=== PATIENT | female | born 1925 | race Caucasian/White ===

== ENCOUNTER 2016-08-15 13:48 | Emergency (ER) | payer MEDICARE ==
[~2016-08-15] VITALS: Ht 154.9 cm; Wt 70.0 kg
[~2016-08-15 13:48] MED LIST: ASPI-973 PO; ATEN25TA PO; CALC600T12 PO; CHOL200047 PO; CLOP75TA28 PO; ESTR42.52 VAGINAL; MULT-1018 PO; OMEG-38 PO; ROSU5TAB PO; VIT1TABL83 PO
[2016-08-15 14:02] VITALS: BP 147/83; PULSE 65; RESP 12; O2SAT 99
[2016-08-15] MEDS ORDERED: 0.9% Sodium Chloride 1,000 ML IV ONE (14:40)
--- NOTE | 2016-08-15 14:49 | ED.REPORT ---
HPI-Extremity Problem Lower Date of Service Aug 15, 2016 ED Provider: Yanely Campos MD Neelam is an 89-year-old female brought in by EMS with chief complaint of right leg pain. She states the pain started suddenly at approximately 10 AM this morning as she sat down on her bed. The plan centralized around her knee but she states it radiates to her hip and her foot. She describes an ache and rates it 10 out of 10. She attempting treatment with one Tylenol 3 followed by a second when shortly afterwards. The patient associates this pain with taking Plavix as she had a similar episode when she first started taking Plavix after a TIA. She DC'd Plavix pain subsided at that time after about [address] Jones convinced her to restart Plavix and she has been on it for 4-6 weeks at this point. She says the pain is the same. She denies back pain. Denies fever , DM, HIV, organ transplant, immunosuppression, recent surgery, recent infection , history of back surgery, surgical implants and IV drug use. Denies bowel/ bladder dysfunction and saddle anesthesia. Nursing Notes Stated Complaint: RIGHT LEG PAIN Chief Complaint: Extremity Trauma Nursing Notes Reviewed: Yes Allergies: Coded Allergies: amoxicillin trihydrate (Verified Adverse Reaction, Severe, N&V, 04/21/16) potassium clavulanate (Verified Adverse Reaction, Severe, N&V, 04/21/16) ciprofloxacin (Verified Adverse Reaction, Mild, N&V, 04/21/16) Per conversation with Dr. Phillips pt "feels unwell" when she takes Cipro. sulfamethoxazole (Verified Adverse Reaction, Mild, N&V, 04/21/16) trimethoprim (Verified Adverse Reaction, Mild, N&V, 04/21/16) Scheduled Aspirin (Aspirin) 81 Mg Tablet 81 MG PO DAILY Atenolol (Atenolol) 25 Mg Tablet 25 MG PO DAILY Calcium Carbonate (Calcium) 600 Mg Tablet 1,200 MG PO BID Cholecalciferol (Vitamin D3) (Vitamin D3) 2,000 Unit Capsule 2,000 UNIT PO DAILY Clopidogrel (Clopidogrel) 75 Mg Tablet 75 MG PO DAILY Estradiol (Estrace) 42.5 Gm Cream.appl 1 APPLIC VAGINAL Thu, Multivitamin (Multi Vitamin Daily) 1 Each Tablet 1 EACH PO DAILY Dana-3/Dha/Epa/Fish Oil (Fish Oil 1,000 mg Softgel) 1 Each Capsule 1 EACH PO BID Polyethylene Glycol 3350 (Miralax) 17 Gm Powd.pack 17 GM PO DAILY Rosuvastatin Calcium (Crestor) 5 Mg Tablet 5 MG PO DAILY Vit B Comp/C/FA/Iron/Vit E (Vitamin B Complex Tablet) 1 Each Tablet 1 EACH PO DAILY Scheduled PRN oxyCODONE-Acetaminophen 5-325 mg (oxyCODONE-Acetaminophen 5-325 mg) 1 Each Tablet 1-2 TAB PO Q6H PRN PRN For Pain General Time Seen by MD: 14:39 Chief Complaint Leg injury right Past Medical History Past Medical History Heart murmur, hx of PAC Mild aortic regurgitation Anxiety Hx of kidney stones Polio as a child Reports: GERD, Hypertension Past Surgical History Lumpectomy x3 RPR Thyroidectomy Reports: Appendectomy, Cataract surgery, Hysterectomy Smoking History Never Smoker Social History Alcohol Use: Denies alcohol use Drug Use: Denies drug use Other Social History: Good social support, Local resident Ambulatory Status Independent Review of Systems Review of Systems Note: Denies back pain. Denies bowel or bladder dysfunction. Constitutional: Denies: Fever Musculoskeletal: Reports: Extremity pain (right knee pain.) Complete sys rev & neg: except as marked. Physical Exam Initial Vital Signs Vital Signs (First) Date Time Temp Pulse Resp B/P Pulse Ox O2 Delivery O2 Flow Rate FiO2 08/15/16 14:02 36.8 65 12 147/83 99 Room Air Interpretation & Diagnostics Lab Results Interpretation Result Diagram: 08/15/16 1535 08/15/16 1535 Test 08/15/16 15:35 White Blood Count 8.4th/mm3 (3.8-10.1) Red Blood Count 5.38mil/mm3 (3.90-5.20) Hemoglobin 16.8g/dL (12.0-15.6) Hematocrit 47.5% (35.0-46.0) Mean Corpuscular Volume 88.3fL (81-100) Mean Corpuscular Hemoglobin 31.2pg (27.0-35.0) Mean Corpuscular Hemoglobin Concent 35.4% (32.0-37.0) Red Cell Distribution Width 13.5% (12.3-15.4) Platelet Count 242bil/L (150-400) Neutrophils (%) (Auto) 86.0% (40-74) Lymphocytes (%) (Auto) 9.8% (14-46) Monocytes (%) (Auto) 3.9% (4-12) Eosinophils (%) (Auto) 0% (0-5) Basophils (%) (Auto) 0.2% (0-3) Sodium Level 135mEq/L (134-144) Potassium Level 4.1mEq/L (3.5-5.2) Chloride Level 99mEq/L (97-108) Carbon Dioxide Level 20mmol/L (18-29) Blood Urea Nitrogen 19mg/dL (8-27) Creatinine 0.49mg/dL (0.57-1.00) Estimat Glomerular Filtration Rate 170mL/min (>59) Glucose Level 127mg/dL (60-99) Calcium Level 10.1mg/dL (8.5-10.1) Total Bilirubin 0.6mg/dL (0.0-1.2) Aspartate Amino Transf (AST/SGOT) 23U/L (0-50) Alanine Aminotransferase (ALT/SGPT) 15U/L (0-32) Alkaline Phosphatase 66U/L (25-165) Total Protein 7.8g/dL (6.4-8.4) Albumin 4.4g/dL (3.4-5.0) X-Ray Interpretation Xray Interpretation: PROCEDURE: X-RAY RIGHT KNEE, THREE VIEWS ([id number]) INDICATIONS: right knee pain. TECHNIQUE: 3 views of the knee were acquired. IMPRESSION: 1. Mild to moderate degenerative changes of the right knee. 2. No acute fracture. 3. Very large right knee joint effusion. A knee MRI would be helpful for better evaluation. Interpretation / Wet Read by: Interpret - ED physician, Interpret - Radiologist, Interp - [facility] Procedures Procedure Notes: 1638 SHIRAZ wrap applied to patient's right knee by Physician. Patient is neurovascularly intact. Re-Eval/Medical Decision Re-Evaluation/Progress #1: Time of Eval: 15:07 Re-Evaluation/Progress Note: care assumed. Very swollen left knee, no redness or warmth. Acute onset at 10am with out any truama. So painful she is shaking. Pain control, Xray, labs, re-eval Re-Evaluation/Progress #2: Time of Eval: 16:31 Re-Evaluation/Progress Note: Rechecked patient and explained reassuring test results and prior discussion with the orthopedic surgeon. Re-Evaluation/Progress #3: Time of Eval: 16:38 Re-Evaluation/Progress Note: Rechecked patient and explained that Dr. Flores reccomends that an SHIRAZ wrap be applied to the patient, and that the patient follow up with Dr. Flores next week. Re-Evaluation/Progress #4: Time of Eval: 11:39 (Thursday08/16/16) Re-Evaluation/Progress Note: called to check on pt. Feels better. Slept moderately well last night. Taking only one percoset rather than 2. able to get to bedside cammode. able to use walker. Questions answered Consultation : Referral / Consult Name: Jason Flores MD Consulted With: Orthopedic Call Returned at: 16:21 Plaster Block Layer: Will see patient, Agrees with eval, Agrees with plan Note: Discussed patient case with Dr. Flores who counsels that an SHIRAZ Wrap should be applied to the patient's knee, that she should be sent home, and that she should follow up with him in his office next week. Discharge & Departure Impression: Primary Impression: Right knee pain Additional Impression: Hemarthrosis Disposition: Home Discharge Condition All VS Reviewed: Yes Condition: Improved Additional Instructions: Your blood tests yielded normal results. You are not anemic and there is nothing broken in the XRay images. There is internal bleeding inside of your knee. We applied an SHIRAZ wrap to allow the bandage pressure to stop the bleeding. The SHIRAZ Wrap needs to be tight, but not so tight that it is cutting off blood circulation. It might be tricky around the knee because of the pain. You can unwrap it to shower and bathe. If the wrap is hurting more, then you can take it off. Take it off for a little bit everyday to help with blood flow. The hope is that it prevents swelling. You need to stop taking Plavix. I talked with Dr. Jason Flores, orthopedic surgeon who wants you to follow up with him in one week at his clinic to see if there is anything else that needs to be done for you. Call him on Thursday to set up an appointment. Keep moving your knee as much as you can which includes walking on it, as this will allow for reabsorption of blood into the inside of your knee. Use your walker to alleviate pain while you are walking. Keep swimming and walking in the pool, but make sure that assistance is available for getting in and out. Take Percocet, two at a time. This will result in better pain control and the effects of the medication being more spread out. I recommend that you write down the time when you take each Percocet dosage. This medication will make you loopy . The most you can take is 2 pills every 6 hours. It will hurt a lot tomorrow, but should start feeling a lot better by Thursday afternoon. After this time, try spreading dosages to 7-8 hours and try taking 1 pill at a time. Conditions like this are always worse for the first two days. Do not take Aleve or ibuprofen. You can continue to take baby aspirin. You can take MiraLAX to help with constipation. Take one cap full of the white powder with a big glass fo water, tea, or coffee every time you take a dosage of your pain ills. The biggest side effect of MiraLAX is runny stool. Referrals: Stan Haas MD (PCP) Scribe Attestation Portions of this note were transcribed by Raphael Peñaloza. I, Dr. Campos personally performed the history, physical exam and medical decision-making; I reviewed and confirmed the accuracy of the information in the transcribed note. Signed by: Iesha Vigil, 08/15/2016 [id number]. copies to: Stan Haas MD; Jason Flores MD, Seth PA-C Aug 15, 2016 14:49 Yanely Campos MD Aug 15, 2016 15:08 Raphael Peñaloza Aug 15, 2016 16:32
[2016-08-15] MEDS ORDERED: Ondansetron 8 mg ODT Tablet PO ONE (15:00)
[2016-08-15] MEDS: HYDROmorphone 0.5 mg/0.5 mL iSecure Syringe IVPUSH PRN ×3 (15:45→17:23)
[2016-08-15 15:50] LABS: BASOPHILS % (AUTO) 0.2 % (0-3); EOSINOPHILS % (AUTO) 0 % (0-5); MONOCYTES % (AUTO) 3.9 % (4-12); Mean Corpuscular Hemoglobin 31.2 pg (27.0-35.0); Mean Corpuscular Volume 88.3 fL (81-100); Platelet Count 242 bil/L (150-400)
--- NOTE | 2016-08-15 16:18 | DRSVH ---
PROCEDURE: X-RAY RIGHT KNEE, THREE VIEWS ([id number]) INDICATIONS: right knee pain. TECHNIQUE: 3 views of the knee were acquired. COMPARISON: None. FINDINGS: Bones: No fractures or dislocations. No suspicious bony lesions. The bone mineralization is within normal limits. Mild to moderate degenerative changes are present within all 3 compartments of the k nee with small to moderate-sized developing marginal osteophytes noted throughout. Soft tissues: There is a very large joint effusion. Mild edema within the prepatellar soft tissues i s noted. No suspicious soft tissue calcifications. IMPRESSION: 1. Mild to moderate degenerative changes of the right knee. 2. No acute fracture. 3. Very large right knee joint effusion. A knee MRI would be helpful for better evaluation. Dictated by: Gwyn Haney M.D. on 08/15/2016 at 15:14 Approved by: Gwyn Haney M.D. on 08/15/2016 at 15:17
[2016-08-15] MEDS ORDERED: oxyCODONE-Acetamin 5-325 mg Tablet PO ONE (17:05)
[2016-08-15] MEDS ORDERED: POLY17PO6 PO (17:16)
[2016-08-15] MEDS ORDERED: OXYC1TAB24 PO (17:16)
[2016-08-15] MEDS ORDERED: Ondansetron 2 mg/mL 2 mL Inj IVPUSH ONE (17:55)
[2016-08-15 18:33] VITALS: BP 140/80; PULSE 62; RESP 14; O2SAT 98
== END 2016-08-15 18:35 | disposition home or self-care (01) ==
LOC: EDBD 13:48 → SED 13:48 → EDUNIT# 13:48 → SED 18:35
DX: M25.561 Pain in right knee (principal); M25.061 Hemarthrosis, right knee; Z79.82 Long term (current) use of aspirin; Z88.1 Allergy status to other antibiotic agents; Z88.2 Allergy status to sulfonamides; Z88.8 Allergy status to other drugs, medicaments and biological substances
CPT/HCPCS: 73562; 80053; 85025; 96361; 96374; 96375; 96376; 99285; J1170; J2405; J7030